=== PATIENT | female | born 1970 | race Caucasian/White ===

== ENCOUNTER → 2023-12-24 08:14 | Outpatient (REF) | payer BC, SELFPAY | LOC: HWRAD 08:14 | PROVIDERS: ATTENDING PHYSICIAN Obstetrics & Gynecology; FAMILY PHYSICIAN Family Medicine | DX: N83.201 Unspecified ovarian cyst, right side (principal) | CPT/HCPCS: 76830; 76856 ==

== ENCOUNTER → 2024-12-28 08:01 | Outpatient (REF) | payer BC, SELFPAY | LOC: WDC 08:01 | PROVIDERS: ATTENDING PHYSICIAN Obstetrics & Gynecology; FAMILY PHYSICIAN Family Medicine | DX: N64.4 Mastodynia (principal) | CPT/HCPCS: 76642; 77063; 77067 ==

== ENCOUNTER 2025-02-19 03:30 | Emergency (ER) | payer BC, SELFPAY ==
[2025-02-19 03:37] VITALS: BP 113/80
[2025-02-19 03:39] VITALS: BP 120/74
--- NOTE | 2025-02-19 04:15 | ED.GENMED ---
History of Present Illness
General
Chief Complaint: Musculo-Skeletal Complaint
Source: patient
Exam Limitations: none
Time Seen by Provider: 02/19/25 03:51
Nursing documentation reviewed up to this point in time: agreed with
History of Present Illness
History of Present Illness:
see MDM
Past History
Past History
ED Past Medical History: None; Negative HTN, Hypercholesterolemia or NIDDM
ED Past Surgical History: None
Social History
Tobacco: Non-smoker
Alcohol: None
Personal:
Living: with family
Review of Systems
Review of Systems
Allergies reviewed?: Yes
All Other Systems: Not applicable
Phy Exam
Physical Exam
Physical Exam:
GENERAL: Alert , in no apparent distress, comfortable at rest
HEAD: NCAT
CV: 2+ DP PULSES B/L
regular
lungs clear
NEUROLOGICAL: Alert and oriented, no focal neuro deficits, , 5/5 strength, sensation intact, ambulation slight limp right leg
SKIN: Warm and dry, no rash; minimal erythema/pink skin chnages to R lateral mall
MUSCULOSKELETAL: mild swelling R lateral ankle with faint erythema
no wounds
full ROM but some stiffness with dorsiflexion
normal pulse
notnedner foot
normal calf, notnender, neg homans sign
PSYCH: Normal and appropriate interaction.
Course
Vital Signs
Initial and Last Documented VS:
Initial Vital Signs
Temp Pulse Resp BP Pulse Ox
36.6 C 81 14 113/80 97
02/19/25 03:37 02/19/25 03:37 02/19/25 03:37 02/19/25 03:37 02/19/25 03:37
Last Documented Vital Signs
Temp Pulse Resp BP Pulse Ox
36.8 C 80 16 120/74 98
02/19/25 03:39 02/19/25 03:39 02/19/25 03:39 02/19/25 03:39 02/19/25 04:18
MDM/Problems Addressed
Differential Diagnosis Includes:
see mdm
MDM/Problems Addressed:
Note:
CHIEF COMPLAINT(S)
Ankle swelling and pain.
HISTORY OF PRESENT ILLNESS
The patient, who reveals no chronic medical problems, suddenly awoke in the middle of the night with swelling and pain in the ankle. The patient describes the pain as moderate enough to hinder walking. No recent trauma or unusual activity preceded
the symptoms. The patient denied drinking alcohol; has estrogen patch.
While trying to alleviate the discomfort, the patient did not observe any alleviation through massage or rest. The patient mentioned being concerned about a potential DVT diagnosis and is inclined to discuss. The patient has not experienced any
fever or signs of infection, and there is no history of previous similar episodes.
she has not had any recent long travel
h/o DVT/PE
fever
tick bites
alcohol use
gout history
trauma
SOCIAL HISTORY
The patient denies alcohol consumption and hormone replacement therapy.
REVIEW OF SYSTEMS
- Musculoskeletal: Ankle pain, swelling.
- General: No fever, no chills.
- Cardiovascular: Denies chest pain, no history of prolonged immobility or recent long-distance travel.
- Respiratory: Denies shortness of breath.
PHYSICAL EXAM
- Musculoskeletal: Swollen ankle. Patient reports pain with attempted movement.
Nursing notes reviewed and vital signs reviewed.
PROBLEM LIST
- Acute: Ankle swelling and pain.
PLAN
The plan includes managing the patients ankle swelling and pain with a conservative approach. she was offered US and xray which she declined.
The patient is advised to take Ibuprofen 600 mg three times a day with food for three to five days, use ice, and elevate the affected ankle. Rest is encouraged, and avoiding weight-bearing activities is recommended. If the condition progresses to
increased redness or swelling, or if the pain worsens, the patient should contact their primary care provider for further assessment. The patient may consider obtaining an ultrasound if symptoms persist or worsen.
DIFFERENTIAL DIAGNOSIS
The Differential Diagnosis includes, in no particular order and is not limited to:
1. Gout
2. Pseudo-gout
3. Osteoarthritis
4. Arthritic flare
5. Septic arthritis
6. Overuse injury
7. Deep vein thrombosis (although less likely given current presentation)
8. Lyme disease arthritis (if recent tick exposure)
9. Tendinitis
10. Trauma-related swelling
Patient woke with right lateral ankle pain this morning and is very concerned she could have a DVT. It seems to be localized to the joint. She is able to fully range it making septic arthritis much less likely. It is a little warm and slightly
pink. There is no wounds. She is good pulse. She has not taken anything for pain but came to the ER concern for a DVT. She is on an estrogen patch making it higher risk for her however there is no leg pain, calf swelling or pain or tenderness
and given where the swelling is seems pretty localized to the joint. I suspect she has arthritis or gout. Recommend NSAIDs. I offered an x-ray which she declined. I also did offer an ultrasound though I did not feel it was clinically high yield
but she declined, she was reassured by my explanation
*Pulse Oximetry
SaO2: 98
Oxygen Mode of Delivery: Room air
Patient hypoxic: no (98)
*Critical Care Note
Total Time (30-74mins, 75-104mins- exclusive of procedures): Not Applicable
ED Attending Note
-
Portions of this chart may have been created with voice recognition software.� Occasional wrong word or��sound alike� substitutions may have occurred due to the inherent limitations of voice recognition software.
Discharge Plan
Departure
Patient Disposition: Home (Routine Discharge)
Date of Disposition: 02/19/25
Time of Disposition: 04:20
Patient with high blood pressure during this ER visit?: No
Condition: Fair
Covid-19: Not Applicable
Discharge Problem:
Ankle swelling
Instructions: Muscle and Bone Pain (DC)
Activity Restrictions/Additional Instructions:
YOUR ANKLE SWELLING IS PROBABLY INFLAMMATION, IT COULD BE ARTHRITIS OR GOUT
TRY MOTRIN EVERY 8 HOURS 600 MG FOR 3-5 DAYS WITH FOOD
ELEVATE AND TRY TO STAY OFF OF IT FOR 2 DAYS
WATCH FOR WORSENIGN PAIN/SWELLING/REDNESS ESPECIALLY IF YOU CANNOT MOVE THE ANKLE, FEVER, CHILLS, CALF PAIN/SWELLING AND REUTRN NEEDED
Interventions
Interventions:
*Risk Screen - Suicide Last Done: 02/19/25 03:39
*General Assessment Last Done: 02/19/25 03:39
*Neglect/Abuse Screening Last Done: 02/19/25 03:39
*ED- Fall Risk Assessment Last Done: 02/19/25 04:19
*ED COVID-19 Vaccine History Last Done: 02/19/25 04:19
*Nursing Disposition Last Done: 02/19/25 04:25
ED-Musculoskeletal Assessment Last Done: 02/19/25 04:19
Discharge Date and Time
Discharge Date/Time: 02/19/25 04:25
Print Language: MAURITANIAN
[2025-02-19 04:19] VITALS: BMI 31.6
== END 2025-02-19 04:25 | disposition home or self-care (01) ==
LOC: EMR 03:30
PROVIDERS: EMERGENCY PHYSICIAN Student in an Organized Health Care Education/Training Program
DX: M25.571 Pain in right ankle and joints of right foot (principal); M25.471 Effusion, right ankle; L53.9 Erythematous condition, unspecified; R26.2 Difficulty in walking, not elsewhere classified; M19.90 Unspecified osteoarthritis, unspecified site
CPT/HCPCS: 99282

== ENCOUNTER → 2025-03-31 09:51 | Outpatient (REF) | payer BC, SELFPAY | LOC: DHSLP 09:51 | PROVIDERS: ATTENDING PHYSICIAN Family Medicine | DX: G47.30 Sleep apnea, unspecified (principal); R06.83 Snoring | CPT/HCPCS: 95800 ==